=== PATIENT | male | born 1950 | race Caucasian/White ===

== ENCOUNTER 2017-07-27 09:19 | Emergency (ER) | payer OTHER ==
[~2017-07-27] VITALS: Ht 182.9 cm; Wt 102.0 kg
[~2017-07-27 09:19] MED LIST: ACET325 PO; ALBU6.7H INH; ASPI81 PO; CYAN1000P IM; D31000TA PO; DILA100C PO; DIPH2%T PO; DOCU100T9 PO; FLON0.053 EACH NARE; FOLI1TAB PO; GLIP5 PO; IBUP600T26 PO; LANSO15 PO; LORA-474 PO; PARO30TA PO; PRED20 PO; REME45TA PO; ROSU40 PO; TERA5CAP3 PO; TYLE3 PO
[2017-07-27 09:24] VITALS: BP 141/65; PULSE 80; RESP 17; TEMP 98.2; O2SAT 95
[2017-07-27] MEDS ORDERED: BACT800T5 PO (09:45)
[2017-07-27] MEDS ORDERED: TETANUS/DIPHTHERIA TOXOID ADULT 0.5 ML VIAL IM ONE (09:45)
[2017-07-27] MEDS ORDERED: SULFAMETHOXAZOLE-TRIMETHOPRIM DS 800-160 MG TAB PO ONE (09:45)
--- NOTE | 2017-07-27 09:45 | PD ---
HPI Chief Complaint: Skin Problem Time Seen by Provider: 09:38 Travel History International Travel<30 days: No Contact w/Intl Traveler<30days: No Traveled to known affect area: No History of Present Illness HPI 67-year-old male complains of nail puncture wound to the left foot. Patient stepped on a nail this morning. Patient states that the nail did not break up inside the left foot. Patient is not sure about TD booster status. Patient was wearing shoe when that happened. Patient states that he had a lot of bleeding after he stepped on a nail. PFSH Past Medical History Asthma: No Autoimmune Disease: No Blood Disorders: No Anxiety: Yes Depression: Yes Cancer: Yes (MELANOMA) Cardiovascular Problems: Yes (VENOUS INSUFFICIENCY) High Cholesterol: Yes Chemotherapy: No COPD: Yes Diabetes: Yes Patient Takes Glucophage: Yes Diminished Hearing: No Endocrine: No Gastrointestinal Disorders: Yes (DIVERTICULITIS, IBS,CHRONS DX, COLON POLYPS, HEMORRHOIDS) GERD: Yes Glaucoma: No Genitourinary: Yes (ENLARGE PROSTATE, NEPHROLITHIASIS) Hiatal Hernia: Yes (LT) Immune Disorder: No Musculoskeletal: Yes (OSTEOARTHRITIS, OSTEOPENIA) Neurologic: Yes (VERTIGO) Parkinson's Disease: Yes Psychiatric: Yes (PTSD) Reproductive: No Respiratory: Yes Integumentary: Yes (ROSACEA, SEBORRHEA) Radiation Therapy: No Seizures: Yes (TRAUMATIC BRAIN) Sleep Apnea: No Thyroid Disease: No Tetanus Vaccination: > 5 Years Past Surgical History Abdominal Surgery: Yes (LT INGUINAL HERNIA REPAIR X 2, HEMORRHOIDS) AICD: No Appendectomy: Yes Arteriovenous Shunt: No Cardiac Surgery: No Ear Surgery: No Endocrine Surgery: No Eye Surgery: No Genitourinary Surgery: No Gynecologic Surgery: No Insulin Pump: No Joint Replacement: No Oral Surgery: Yes (JAW SURGERY) Pacemaker: No Thoracic Surgery: No Tonsillectomy: Yes (AND ADENOIDS) Other Surgery: Yes (MELANOMA REMOVED ON BACK) Social History Alcohol Use: No Tobacco Use: Yes (3 PPD) Substance Use: No Allergies-Medications (Allergen,Severity, Reaction): Coded Allergies: amoxicillin (Unverified Allergy, Severe, 02/11/17) atorvastatin (Unverified Allergy, Severe, 02/11/17) cephalexin (Unverified Allergy, Severe, 02/11/17) clavulanic acid (Unverified Allergy, Severe, 02/11/17) colestipol (Unverified Allergy, Severe, 02/11/17) fluvastatin (Unverified Allergy, Severe, 02/11/17) levalbuterol (Unverified Allergy, Severe, 02/11/17) levetiracetam (Unverified Allergy, Severe, 02/11/17) niacin (Unverified Allergy, Severe, 02/11/17) pravastatin (Unverified Allergy, Severe, 02/11/17) ropinirole (Unverified Allergy, Severe, 02/11/17) simvastatin (Unverified Allergy, Severe, 02/11/17) topiramate (Unverified Allergy, Severe, 02/11/17) Reported Meds & Prescriptions Reported Meds & Active Scripts Active Deltasone 20 Mg Tab (Prednisone) 20 Mg Tab 60 Mg PO DAILY 4 Days Reported Ativan (Lorazepam) 1 Mg Tab 1 Mg PO QID PRN Prevacid Solutab (Lansoprazole) 15 Mg Tab 30 Mg PO DAILY Tylenol #3 (Acetaminophen/Codeine Phosphate) Acetaminophen 300/30 Codeine Tab 1 Tab PO Q4H PRN FOR PAIN Crestor (Rosuvastatin Calcium) 40 Mg Tab 20 Mg PO HS Remeron 45 mg (Mirtazapine) 45 Mg Tab 45 Mg PO HS Paroxetine Hcl 30 Mg Tab 60 Mg PO HS Glipizide 5 Mg Tab 2.5 Mg PO DAILY Terazosin Hcl (Terazosin HCl) 5 Mg Cap 5 Mg PO HS Ibuprofen 600 Mg Tab 600 Mg PO Q6HR Flonase (Fluticasone Propionate) 0.05 % Naspr 2 Spr EACH NARE DAILY Docusate Sodium 100 Mg Cap 200 Mg PO BID Diphenhydramine Hcl (Diphenhydramine HCl) 25 Mg Tab 25 Mg PO Q6HPRN Cyanocobalamin 1000 mcg/ml (Cyanocobalamin) 1,000 Mcg/1 Ml Inj 1,000 Mcg IM MONTHLY D3 (Cholecalciferol) 1,000 Unit Tab 1,000 Unit PO DAILY Dilantin Kapseals (Phenytoin Sodium) 100 Mg Cap 300 Mg PO BID Folate (Folic Acid) 1 Mg Tab 1 Mg PO DAILY Aspirin 81 Mg Tab 81 Mg PO DAILY Proventil Hfa (Albuterol Sulfate) 6.7 Gm Aero 2 Puff INH Q4HR PRN * SHAKE WELL BEFORE USE * Tylenol (Acetaminophen) 325 Mg Tab 650 Mg PO QIDPRN Review of Systems General / Constitutional: No: Fever Eyes: No: Visual changes HENT: No: Headaches Cardiovascular: No: Chest Pain or Discomfort Respiratory: No: Shortness of Breath Gastrointestinal: No: Abdominal Pain Genitourinary: No: Dysuria Musculoskeletal: No: Pain Skin: No Rash Neurologic: No: Weakness Psychiatric: No: Depression Endocrine: No: Polydipsia Hematologic/Lymphatic: No: Easy Bruising Physical Exam Narrative GENERAL: Well-nourished, well-developed patient. SKIN: Focused skin assessment warm/dry. HEAD: Normocephalic. EYES: No scleral icterus. No injection or drainage. NECK: Supple, trachea midline. No JVD or lymphadenopathy. CARDIOVASCULAR: Regular rate and rhythm without murmurs, gallops, or rubs. RESPIRATORY: Breath sounds equal bilaterally. No accessory muscle use. GASTROINTESTINAL: Abdomen soft, non-tender, nondistended. MUSCULOSKELETAL: No cyanosis, or edema. BACK: Nontender without obvious deformity. No CVA tenderness. Patient has a small puncture wound went aspect of the left foot. No active bleeding. Mild soft tissue swelling. Sensorimotor function distally intact. Data Data Last Documented VS Vital Signs Date Time Temp Pulse Resp B/P (MAP) Pulse Ox O2 Delivery O2 Flow Rate FiO2 07/27/17 09:24 98.2 80 17 141/65 (90) 95 Orders Orders Tetanus/Diphtheria Tox Adult (Tetanus/Di (07/27/17 09:45) Sulfamet-Trimeth Ds 800-160 Mg (Bactrim (07/27/17 09:45) Wound Care (07/27/17 09:40) MDM Medical Decision Making Medical Screen Exam Complete: Yes Emergency Medical Condition: Yes Differential Diagnosis Differential diagnosis including puncture wound, ligament tendon blood vessel injury. Narrative Course 67-year-old male with puncture wound left foot from a nail. TD booster given. Bactrim DS one tablet by mouth given. Diagnosis Primary Impression: Puncture wound of left foot Qualified Codes: S91.332A - Puncture wound without foreign body, left foot, initial encounter Patient Instructions: General Instructions Additional Instructions: Wound care daily. Bactrim DS as directed. Follow-up with personal physician. Return if increasing redness swelling. Med/Other Pt SpecificInfo: Prescription(s) given Scripts Sulfamethoxazole-Trimethoprim (Bactrim DS) 800-160 Mg Tab 1 TAB PO BID for Infection, #14 TAB 0 Refills Prov: Drake Bruce MD 07/27/17 Disposition: 01 DISCHARGE HOME Condition: Stable Drake Bruce MD Jul 27, 2017 09:45
== END 2017-07-27 10:08 | disposition home or self-care (01) ==
LOC: NEPD 09:19
DX: S91.332A Puncture wound without foreign body, left foot, initial encounter (principal); J44.9 Chronic obstructive pulmonary disease, unspecified; W45.0XXA Nail entering through skin, initial encounter; Z23 Encounter for immunization; Z72.0 Tobacco use
CPT/HCPCS: 90471; 90714; 96372